=== PATIENT | male | born 1990 | race Caucasian/White ===

== ENCOUNTER 2019-11-13 00:43 | Emergency (ER) | payer OTHER ==
[~2019-11-13] VITALS: Ht 177.8 cm; Wt 79.4 kg
[2019-11-13 00:43] VITALS: BP_SYST 127
[2019-11-13] MEDS ORDERED: KETOROLAC TROMETHAMINE 60 MG/2 ML VIAL IM ONE (01:15)
[2019-11-13] MEDS ORDERED: KETOROLAC TROMETHAMINE 30 MG VIAL ONE (01:41)
[2019-11-13 02:34] LABS: BASOPHILS % (AUTO) 0.2 % (0.0-2.0); HEMATOCRIT 41.8 % (36-54); HEMOGLOBIN 13.9 g/dL (14.0-18.0); LYMPHOCYTES % (AUTO) 6.8 % (20.5-51.5); MEAN CORPUSCULAR HEMOGLOBIN 30 pg (27-31); MEAN CORPUSCULAR HGB CONC 33 % (32-36); MEAN CORPUSCULAR VOLUME 89 fL (79.0-98.0); MONOCYTES # (AUTO) 0.8 K/uL (0.0-1.0); MONOCYTES % (AUTO) 5.5 % (1.7-9.3); NEUTROPHILS # (AUTO) 12.5 K/uL (1.8-7.7); NEUTROPHILS % (AUTO) 87.5 % (40.0-70.0); PLATELET COUNT (AUTO) 208 K/uL (130-430); RED CELL DISTRIBUTION WIDTH 13.4 % (9.0-15.0); WHITE BLOOD COUNT (AUTO) 14.3 K/uL (4.8-10.8)
[2019-11-13 02:42] LABS: CALCIUM 7.5 mg/dL (8.4-11.0); CREATININE 1.02 mg/dL (0.55-1.30); POTASSIUM 3.6 mmol/L (3.5-5.1)
[2019-11-13 02:46] LABS: PROTHROMBIN TIME 9.9 SECS (9.5-12.5)
[2019-11-13 02:47] LABS: ALBUMIN 3.9 g/dL (3.4-4.8); TOTAL BILIRUBIN 0.3 mg/dL (0.0-1.0)
[2019-11-13] MEDS: KETOROLAC TROMETHAMINE 30 MG VIAL IVP ONE (02:48)
[2019-11-13] MEDS: MORPHINE 2 MG/ML INJ. SYRINGE IVP ONE (03:39)
[2019-11-13] MEDS: levETIRAcetam 1,000 MG in NS 100 ML IV ONE (03:56)
[2019-11-13] MEDS: NACL 0.9% 1,000 ML IV ONE (03:59)
[2019-11-13] MEDS ORDERED: cefTRIAXone 2 GM VIAL ONE (04:07)
[2019-11-13 05:04] VITALS: BP_SYST 141
== END 2019-11-13 05:04 | disposition short-term general hospital (02) ==
LOC: SED 00:43
DX: S06.5X0A Traumatic subdural hemorrhage without loss of consciousness, initial encounter (principal); S02.81XA Fracture of other specified skull and facial bones, right side, initial encounter for closed fracture; S52.611A Displaced fracture of right ulna styloid process, initial encounter for closed fracture; S02.85XA Fracture of orbit, unspecified, initial encounter for closed fracture; F10.129 Alcohol abuse with intoxication, unspecified; W18.39XA Other fall on same level, initial encounter; Y93.01 Activity, walking, marching and hiking; Y92.098 Other place in other non-institutional residence as the place of occurrence of the external cause; Y99.8 Other external cause status; Y90.5 Blood alcohol level of 100-119 mg/100 ml
CPT/HCPCS: 29105; 36415; 70450; 70486; 72125; 73080; 73110; 76882; 80053; 85025; 85610; 85730; 93005; 96365; 96368; 96375; 99291; G0482; J0696; J1885; J1953; J2270; J7030